=== PATIENT | female | born 1985 | race Asian ===

== ENCOUNTER 2023-12-13 04:14 | Emergency (ER) | payer OTHER, MEDICAID, SELFPAY ==
[2023-12-13] VITALS (10 sets, daily range): BP systolic 97–124; BP diastolic 52–78; PULSE 64–80; RESP 14; TEMP 36.3; O2SAT 99–100; BMI 19.5
--- NOTE | 2023-12-13 04:31 | ED_ITS ---
HPI - Nausea/Vomiting/Diarrhea General Chief complaint: Fall Stated complaint: fall 8 weeks Time Seen by Provider: 12/13/23 04:18 History of Present Illness HPI Narrative: 38-year-old female at approximately 8wks gestation per LMP with no reported past medical history presents for nausea, vomiting, syncopal episode while using the restroom earlier this morning. History is obtained via at [employer] mentally impaired teacher service as patient only speaks Mandarin. Via gas meter installer helper service patient states that she has been vomiting for the last 2 weeks and feels generally weak. While using the restroom this morning she felt very faint and passed out. She denies abdominal pain, loss of fluids, vaginal bleeding. Related Data Home Medications Medication Instructions Recorded Confirmed Complete 12/13/23 Previous Rx's Medication Instructions Recorded doxylamine 10 mg-pyridoxine (vit 1 tab PO BID #30 tabs 12/13/23 B6) 10 mg tablet,delayed release (Diclegis) ondansetron 4 mg disintegrating 4 mg PO Q8H PRN nausea and 12/13/23 tablet vomiting #30 tabs Allergies Allergy/AdvReac Type Severity Reaction Status Date / Time No Known Drug Allergies Allergy Verified 12/13/23 04:54 Review of Systems Review of Systems Narrative: see HPI Patient History Social History Smoking Status: Never smoker Exam Initial Vital Signs Initial Vital Signs: Vital Signs Pulse Rate 78 12/13/23 04:25 Pulse Oximetry 100 12/13/23 04:25 Const: Awake, alert, fatigued, nontoxic appearing Cardiac: regular rate, regular rhythm RESP: unlabored, clear bilaterally, no wheezing GI: Soft, nontender, nondistended Skin: Warm, Dry, intact, no rashes Neuro: AO x3, CN II-XII grossly intact, moves all extremities Course Orders Ordered: ED Orders 12/13/23 04:41 EKG-12 Lead Stat 12/13/23 04:45 CBC Auto Diff [Complete Blood Count AUTO DIFF] Stat CMP [Comprehensive Metabolic Panel] Stat 12/13/23 06:16 UA Complete [Urinalysis and Microscopic] Stat Discontinued Medications Sodium Chloride (Normal Saline 0.9%) 1,000 mls @ 1,000 mls/hr IV BOLUS ONE Stop: 12/13/23 05:29 Last Infusion: 12/13/23 05:41 Dose: Infused Documented By: Admin: 12/13/23 04:45 Dose: 1,000 mls/hr Documented By: Sodium Chloride (Normal Saline 0.9%) 1,000 mls @ 1,000 mls/hr IV BOLUS ONE Stop: 12/13/23 06:33 Last Infusion: 12/13/23 06:18 Dose: Infused Documented By: Admin: 12/13/23 05:41 Dose: 1,000 mls/hr Documented By: Ondansetron HCl (Ondansetron 4 Mg/2 Ml Inj) 4 mg IV NOW ONE Stop: 12/13/23 04:31 Last Admin: 12/13/23 04:50 Dose: 4 mg Documented By: Vital Signs Vital signs: Vital Signs - 8 hr 12/13/23 04:25 12/13/23 04:30 12/13/23 04:30 Temperature Pulse Rate 78 67 Respiratory Rate Blood Pressure 124/78 Pulse Oximetry 100 100 Oxygen Delivery Method 12/13/23 04:54 12/13/23 05:00 12/13/23 05:00 Temperature 97.4 F L Pulse Rate 80 74 Respiratory Rate 14 Blood Pressure 114/74 108/55 L Pulse Oximetry 100 100 Oxygen Delivery Method Room Air 12/13/23 05:30 12/13/23 05:30 12/13/23 06:00 Temperature Pulse Rate 64 Respiratory Rate Blood Pressure 97/68 104/59 L Pulse Oximetry 100 Oxygen Delivery Method 12/13/23 06:00 Temperature Pulse Rate 73 Respiratory Rate Blood Pressure Pulse Oximetry 100 Oxygen Delivery Method MDM - Nausea/Vomiting/Diarrhea Differential Diagnosis Differential diagnosis: Likely traveler's diarrhea, food poisoning and gastroenteritis Lab Data 12/13/23 04:45 12/13/23 04:45 Labs: Lab Results 12/13/23 12/13/23 Range/Units 04:45 06:16 WBC 10.6 (4.5-11.0) X10^3/uL RBC 4.11 (4.0-5.2) X10^6/uL Hgb 12.3 (12.0-16.0) g/dL Hct 36.6 (36-46) % MCV 89.1 (80-100) fL MCH 30.0 (26-34) PG MCHC 33.7 (30-36) % RDW 13.5 (11.6-14.8) % Plt Count 309 (150-400) X10^3/uL Neut % (Auto) 72.4 (50-75) % Lymph % (Auto) 19.5 L (25-40) % [place] % (Auto) 6.6 (3-14) % Eos % (Auto) 0.7 L (2-4) % Baso % (Auto) 0.8 (0-2) % Neut # (Auto) 7700 H (8697-9563) /uL Lymph # (Auto) 2100 (1380-3707) /uL [place] # (Auto) 700 (0-900) /uL Eos # (Auto) 100 (0-450) /uL Baso # (Auto) 100 (0-100) /uL Sodium 137 (137-145) mmol/L Potassium 3.6 (3.4-5.1) mmol/L Chloride 109 H (98-107) mmol/L Carbon Dioxide 20 L (22-32) mmol/L BUN 9 (7-17) mg/dL Creatinine 0.42 L (0.52-1.04) mg/dL Estimated GFR > 60 (>60) mL/min BUN/Creatinine Ratio 21.4 (6-22) Glucose 90 (70-100) mg/dL Calcium 9.0 (8.4-10.2) mg/dL Total Bilirubin 0.6 (0.2-1.3) mg/dL AST 27 (14-36) IU/L ALT 17 (<35) IU/L Alkaline Phosphatase 30 L (38-126) U/L Total Protein 7.4 (6.3-8.2) g/dL Albumin 4.4 (3.5-5.0) g/dL Globulin 3.0 (1.7-4.1) g/dL Albumin/Globulin Ratio 1.5 (1.0-2.8) Urine Color Yellow Urine Appearance Clear Urine pH 6.5 (4.5-8.0) Ur Specific [place] <=1.005 (1.000-1.035) Urine Protein Negative (Negative) Urine Glucose (UA) Negative (Negative) g/dL Urine Ketones 1+ H (NEGATIVE) Urine Occult Blood Negative (Negative) Urine Nitrate Negative (Negative) Urine Bilirubin Negative (NEGATIVE) Urine Urobilinogen 0.2 (0.2) E.U./dL Ur Leukocyte Esterase Negative (NEGATIVE) Urine RBC None seen (0-5/HPF) Urine WBC None seen (0-5/HPF) Ur Squamous Epith Cells 1-5 /hpf (0-5/HPF) Urine Bacteria Occasional (0-1) (None) Ur Culture Indicated? Cult not indicated Vol Urine Centrifuged 10ml (spun) ECG Data Interpretation: Normal sinus rhythm, 70 beats per minute. Normal AK, normal QTC, no ST changes MDM Narrative Medical decision making narrative: Nausea and vomiting in early . No abdominal pain or bleeding. Syncopal episode likely due to volume depletion and vomiting. EKG normal sinus rhythm without concerning findings. Laboratory work, IV fluids, antiemetics ordered. EKG sinus rhythm without concerning findings. Laboratory work is reviewed, no significant electrolyte abnormality or derangement. Urinalysis with 1+ ketones but no infection. Patient reported feeling significantly better after IV fluids and antiemetics, subsequently able to tolerate p.o.. Via gas meter installer helper service patient was informed of lab results. Nausea medication sent to patient's pharmacy of choice. She was advised to follow up with OBGYN and when she returns to her home [facility] Discharge Plan Departure Patient Disposition: Home Clinical Impression: Syncope, First trimester , Nausea and vomiting during Instructions: DI for Hyperemesis Gravidarum Activity Restrictions/Additional Instructions: Follow up with your OBGYN when you get back to your hometow Prescriptions: New ondansetron 4 mg tablet,disintegrating 4 mg PO Q8H PRN (Reason: nausea and vomiting) Qty: 30 0RF doxylamine-pyridoxine (vit B6) [Diclegis] 10-10 mg tablet,delayed release (DR/EC) 1 tab PO BID Qty: 30 0RF No Action Complete Stand Alone Forms: Patient Portal/API
[2023-12-13] MEDS: SODIUM CHLORIDE 0.9% 1,000 ML 1000 ML IV ×2 (04:45→05:41)
[2023-12-13] MEDS: ONDANSETRON 4 MG/2 ML INJ IV (04:50)
[2023-12-13 04:59] LABS: Add Manual Diff / Slide Review NO; Basophils Absolute Auto 100 /uL (0-100); Basophils Percent Auto 0.8 % (0-2); Eosinophils Absolute Auto 100 /uL (0-450); Eosinophils Percent Auto 0.7 % (2-4); Hematocrit 36.6 % (36-46); Hemoglobin 12.3 g/dL (12.0-16.0); Lymphocytes Absolute Auto 2100 /uL (1100-4500); Lymphocytes Percent Auto 19.5 % (25-40); Mean Corpuscular HGB Conc 33.7 % (30-36); Mean Corpuscular Volume 89.1 fL (80-100); Monocytes Absolute Auto 700 /uL (0-900); Monocytes Percent Auto 6.6 % (3-14); Neutrophils Absolute Auto 7700 /uL (1500-7000); Neutrophils Percent Auto 72.4 % (50-75); Platelet Count 309 X10^3/uL (150-400); Red Blood Cell Count 4.11 X10^6/uL (4.0-5.2); Red Cell Distribution Width 13.5 % (11.6-14.8); White Blood Cell Count 10.6 X10^3/uL (4.5-11.0)
[2023-12-13 05:11] LABS: Alanine Aminotransferase 17 IU/L (<35); Albumin 4.4 g/dL (3.5-5.0); Albumin Globulin Ratio 1.5 (1.0-2.8); BUN Creatinine Ratio 21.4 (6-22); Bilirubin Total 0.6 mg/dL (0.2-1.3); Blood Urea Nitrogen 9 mg/dL (7-17); Carbon Dioxide 20 mmol/L (22-32); Chloride 109 mmol/L (98-107); Estimated Glomerular Filt Rate > 60 mL/min (>60); Glucose 90 mg/dL (70-100); Sodium 137 mmol/L (137-145); Total Protein 7.4 g/dL (6.3-8.2)
[2023-12-13 05:12] LABS: HEMOLYSIS 66 (0-50); Potassium 3.6 mmol/L (3.4-5.1)
[2023-12-13 05:13] LABS: Alkaline Phosphatase 30 U/L (38-126); Aspartate Aminotransferase 27 IU/L (14-36)
[2023-12-13 06:25] LABS: Appearance Urine UA CLEAR; Bilirubin Urine UA NEGATIVE (NEGATIVE); Color Urine UA YELLOW; Glucose Urine UA NEGATIVE (Negative); Ketones Urine UA 1+ (NEGATIVE); Leukocyte Esterase Urine UA NEGATIVE (NEGATIVE); Nitrite Urine UA NEGATIVE (Negative); Occult Blood Urine UA NEGATIVE (Negative); Protein Urine UA NEGATIVE (Negative); Specific Gravity Urine UA <=1.005 (1.000-1.035); Urobilinogen Urine UA 0.2 E.U./dL (0.2)
[2023-12-13 06:32] LABS: Bacteria Urine Occasional (0-1); RBC Urine None Seen (0-5/HPF); Urine Volume 10mL (spun); WBC Urine None Seen (0-5/HPF); pH Urine UA 6.5 (4.5-8.0)
[2023-12-13 06:33] LABS: Culture Indicated Urine Cult Not Indicated; Squamous Epithelial Cell Urine 1-5 /HPF (0-5/HPF)
--- NOTE | 2023-12-23 12:08 | ED.FALL ---
HPI - Fall General Chief Complaint: Fall Stated Complaint: fall 8 weeks Time Seen by Provider: 12/13/23 04:18 Source: patient Mode of arrival: Wheelchair History of Present Illness HPI Narrative: This chart was opened in error. This is a duplicate please refer to the encounter for nausea vomiting dated December 23, 2023. Related Data Home Medications Medication Instructions Recorded Confirmed Complete 12/13/23 Previous Rx's Medication Instructions Recorded doxylamine 10 mg-pyridoxine (vit 1 tab PO BID #30 tabs 12/13/23 B6) 10 mg tablet,delayed release (Diclegis) ondansetron 4 mg disintegrating 4 mg PO Q8H PRN nausea and 12/13/23 tablet vomiting #30 tabs Allergies Allergy/AdvReac Type Severity Reaction Status Date / Time No Known Drug Allergies Allergy Verified 12/13/23 04:54 Patient History Social History Smoking Status: Never smoker Smoking Status: Never smoker Substance Use Type: does not use Exam Initial Vital Signs Initial Vital Signs: Vital Signs Pulse Rate 78 12/13/23 04:25 Pulse Oximetry 100 12/13/23 04:25 Course Orders Ordered: Discontinued Medications Sodium Chloride (Normal Saline 0.9%) 1,000 mls @ 1,000 mls/hr IV BOLUS ONE Stop: 12/13/23 05:29 Last Infusion: 12/13/23 05:41 Dose: Infused Documented By: Admin: 12/13/23 04:45 Dose: 1,000 mls/hr Documented By: Sodium Chloride (Normal Saline 0.9%) 1,000 mls @ 1,000 mls/hr IV BOLUS ONE Stop: 12/13/23 06:33 Last Infusion: 12/13/23 06:18 Dose: Infused Documented By: Admin: 12/13/23 05:41 Dose: 1,000 mls/hr Documented By: Ondansetron HCl (Ondansetron 4 Mg/2 Ml Inj) 4 mg IV NOW ONE Stop: 12/13/23 04:31 Last Admin: 12/13/23 04:50 Dose: 4 mg Documented By: MDM - Fall Lab Data 12/13/23 04:45 12/13/23 04:45 Labs: Lab Results 12/13/23 12/13/23 Range/Units 04:45 06:16 WBC 10.6 (4.5-11.0) X10^3/uL RBC 4.11 (4.0-5.2) X10^6/uL Hgb 12.3 (12.0-16.0) g/dL Hct 36.6 (36-46) % MCV 89.1 (80-100) fL MCH 30.0 (26-34) PG MCHC 33.7 (30-36) % RDW 13.5 (11.6-14.8) % Plt Count 309 (150-400) X10^3/uL Neut % (Auto) 72.4 (50-75) % Lymph % (Auto) 19.5 L (25-40) % [place] % (Auto) 6.6 (3-14) % Eos % (Auto) 0.7 L (2-4) % Baso % (Auto) 0.8 (0-2) % Neut # (Auto) 7700 H (5238-0136) /uL Lymph # (Auto) 2100 (5394-2210) /uL [place] # (Auto) 700 (0-900) /uL Eos # (Auto) 100 (0-450) /uL Baso # (Auto) 100 (0-100) /uL Sodium 137 (137-145) mmol/L Potassium 3.6 (3.4-5.1) mmol/L Chloride 109 H (98-107) mmol/L Carbon Dioxide 20 L (22-32) mmol/L BUN 9 (7-17) mg/dL Creatinine 0.42 L (0.52-1.04) mg/dL Estimated GFR > 60 (>60) mL/min BUN/Creatinine Ratio 21.4 (6-22) Glucose 90 (70-100) mg/dL Calcium 9.0 (8.4-10.2) mg/dL Total Bilirubin 0.6 (0.2-1.3) mg/dL AST 27 (14-36) IU/L ALT 17 (<35) IU/L Alkaline Phosphatase 30 L (38-126) U/L Total Protein 7.4 (6.3-8.2) g/dL Albumin 4.4 (3.5-5.0) g/dL Globulin 3.0 (1.7-4.1) g/dL Albumin/Globulin Ratio 1.5 (1.0-2.8) Urine Color Yellow Urine Appearance Clear Urine pH 6.5 (4.5-8.0) Ur Specific [place] <=1.005 (1.000-1.035) Urine Protein Negative (Negative) Urine Glucose (UA) Negative (Negative) g/dL Urine Ketones 1+ H (NEGATIVE) Urine Occult Blood Negative (Negative) Urine Nitrate Negative (Negative) Urine Bilirubin Negative (NEGATIVE) Urine Urobilinogen 0.2 (0.2) E.U./dL Ur Leukocyte Esterase Negative (NEGATIVE) Urine RBC None seen (0-5/HPF) Urine WBC None seen (0-5/HPF) Ur Squamous Epith Cells 1-5 /hpf (0-5/HPF) Urine Bacteria Occasional (0-1) (None) Ur Culture Indicated? Cult not indicated Vol Urine Centrifuged 10ml (spun) Discharge Plan Departure Patient Disposition: Home Clinical Impression: Syncope, First trimester , Nausea and vomiting during Instructions: DI for Hyperemesis Gravidarum Activity Restrictions/Additional Instructions: Follow up with your OBGYN when you get back to your hometown Prescriptions: New ondansetron 4 mg tablet,disintegrating 4 mg PO Q8H PRN (Reason: nausea and vomiting) Qty: 30 0RF doxylamine-pyridoxine (vit B6) [Diclegis] 10-10 mg tablet,delayed release (DR/EC) 1 tab PO BID Qty: 30 0RF No Action Complete Stand Alone Forms: Patient Portal/API
== END 2023-12-13 07:22 | disposition home or self-care (01) ==
PROVIDERS: Emergency Provider Emergency Medicine
DX: O26.891 Other specified pregnancy related conditions, first trimester (principal); R55 Syncope and collapse; R11.2 Nausea with vomiting, unspecified; Z3A.08 8 weeks gestation of pregnancy
CPT/HCPCS: 36415; 80053; 81001; 85025; 93005; 96374; 99284; J2405

== ENCOUNTER 2023-12-23 10:54 | Emergency (ER) | payer OTHER, MEDICAID, SELFPAY ==
[2023-12-23 11:28] VITALS: BP 111/73; PULSE 110; RESP 18; TEMP 37.1; O2SAT 97
--- NOTE | 2023-12-23 12:08 | ED.NAVMDI ---
HPI - Nausea/Vomiting/Diarrhea <Daiana Alvarado PA-C - Last Filed: 12/23/23 17:36> General Chief complaint: Nausea/Vomiting/Diarrhea Stated complaint: 9 wks , NVD Time Seen by Provider: 12/23/23 11:11 Source: patient, family and improvement nurse Mode of arrival: Ambulatory History of Present Illness HPI Narrative: 38-year-old female returns to the emergency department for persistent nausea, vomiting and 1 loose stool yesterday. She was seen on December 13, 2023 had lab work performed which was all within normal limits and given outpatient instructions to use ondansetron as well as doxylamine pyridoxine for hyperemesis . She did use these medications for the last 5 days and they did help. She then stopped them had recurrence of symptoms and restarted them this morning. She is followed by her doctor [place], she is here visiting friends for 1 week. She has an ultrasound scheduled on December 27, 2023 at [facility] in [place]. Previous ultrasound at her family doctor on December 16, per the patient showed fibroids. She is denying any abdominal pain, any fever, any urinary symptoms, any flank pain and no vaginal symptoms. She is with a 10-year-old child. First day of LMP October 23, 2023. Using a gestational calculator her current gestational age is 8 weeks 5 days with an estimated date of delivery of July 29, 2024. Use of the improvement nurse tablet as well as mobile phone Google translation Cantonese throughout the entire history and examination. All other systems are reviewed and are negative. Related Data Home Medications Medication Instructions Recorded Confirmed Complete 12/13/23 Previous Rx's Medication Instructions Recorded doxylamine 10 mg-pyridoxine (vit 1 tab PO BID #30 tabs 12/13/23 B6) 10 mg tablet,delayed release (Diclegis) ondansetron 4 mg disintegrating 4 mg PO Q8H PRN nausea and 12/13/23 tablet vomiting #30 tabs Allergies Allergy/AdvReac Type Severity Reaction Status Date / Time No Known Drug Allergies Allergy Verified 12/13/23 04:54 Patient History <Daiana Alvarado PA-C - Last Filed: 12/23/23 17:36> Social History Smoking Status: Never smoker Smoking Status: Never smoker Substance Use Type: does not use Exam <Daiana Alvarado PA-C - Last Filed: 12/23/23 17:36> Initial Vital Signs Initial Vital Signs: Vital Signs Temperature 98.7 F 12/23/23 11:28 Pulse Rate 110 H 12/23/23 11:28 Respiratory Rate 18 12/23/23 11:28 Blood Pressure 111/73 12/23/23 11:28 Pulse Oximetry 97 12/23/23 11:28 Oxygen Delivery Method Room Air 12/23/23 11:28 Vital signs reviewed and are normal except for heart rate of 110, re-evaluated after 1 L of intravenous normal saline and it was 72 per minute. Const Other: Smiling, seated, no distress. Work of breathing is normal. Vital signs reviewed and are normal initial heart rate was 110 per minute however. HENMT Face and sinus: normal facial exam Mouth: oral mucosae normal, lip normal and tongue normal Teeth and gingiva: dentition normal and gingiva normal Throat: posterior oropharynx normal Eyes Conjunctivae: conjunctivae normal Sclera: sclerae normal Neck Lymphatic: No lymphadenopathy Resp Other: Clear to auscultation throughout no wheezes rales or rhonchi. Cardio Other: Regular rate and rhythm, she is re-evaluated after 1 L of normal saline intravenously in her heart rate is 72 per minute. Skin Other: Normal color, turgor, temperature. <Sunny Veras DO - Last Filed: 12/23/23 17:40> Initial Vital Signs Initial Vital Signs: Vital Signs Temperature 98.7 F 12/23/23 11:28 Pulse Rate 110 H 12/23/23 11:28 Respiratory Rate 18 12/23/23 11:28 Blood Pressure 111/73 12/23/23 11:28 Pulse Oximetry 97 12/23/23 11:28 Oxygen Delivery Method Room Air 12/23/23 11:28 Course <Daiana Alvarado PA-C - Last Filed: 12/23/23 17:36> Course Course Narrative: Intravenous hydration of 1 L normal saline, Zofran 4 mg IV, overall she feels much better, CBC and CMP are within normal limits however she did show slightly elevated neutrophils and urinalysis was performed. She has had no recurrence of nausea and no vomiting while in house. She remains pain-free and is denying any new symptoms. Orders Ordered: ED Orders 12/23/23 12:08 Complete Blood Count AUTO DIFF Stat Comprehensive Metabolic Panel Stat HCG Quantitative /Beta subunit Stat 12/23/23 13:32 Urinalysis and Microscopic Stat Discontinued Medications Sodium Chloride (Normal Saline 0.9%) 1,000 mls @ 1,000 mls/hr IV BOLUS ONE Stop: 12/23/23 12:11 Last Infusion: 12/23/23 13:43 Dose: Infused Documented By: Admin: 12/23/23 12:39 Dose: 1,000 mls/hr Documented By: JAMISON Sodium Chloride (Normal Saline 0.9%) 1,000 mls @ 1,000 mls/hr IV BOLUS PRN PRN Reason: Fluid replacement Last Infusion: 12/23/23 16:22 Dose: Infused Documented By: Admin: 12/23/23 15:28 Dose: 1,000 mls/hr Documented By: YOHAN Ondansetron HCl (Ondansetron 4 Mg/2 Ml Inj) 4 mg IV NOW ONE Stop: 12/23/23 11:13 Last Admin: 12/23/23 12:34 Dose: 4 mg Documented By: JAMISON Reevaluation(s) Reevaluation #1: Improved after 1 L of normal saline intravenous hydration. Reevaluation #2: 3:00 p.m. she has given a p.o. challenge with a popsicle, well-tolerated. She has had again no recurrence of nausea or vomiting while in the ED. Vital Signs Vital signs: Vital Signs - 8 hr 12/23/23 11:28 12/23/23 13:54 12/23/23 14:59 Temperature 98.7 F Pulse Rate 110 H 77 86 Respiratory Rate 18 18 16 Blood Pressure 111/73 102/59 L 112/68 Pulse Oximetry 97 98 98 Oxygen Delivery Method Room Air Room Air Room Air 12/23/23 17:14 Temperature 97 F L Pulse Rate 72 Respiratory Rate 20 Blood Pressure 97/59 L Pulse Oximetry 98 Oxygen Delivery Method Room Air <Sunny Veras DO - Last Filed: 12/23/23 17:40> Orders Ordered: ED Orders 12/23/23 12:08 Complete Blood Count AUTO DIFF Stat Comprehensive Metabolic Panel Stat HCG Quantitative /Beta subunit Stat 12/23/23 13:32 Urinalysis and Microscopic Stat Discontinued Medications Sodium Chloride (Normal Saline 0.9%) 1,000 mls @ 1,000 mls/hr IV BOLUS ONE Stop: 12/23/23 12:11 Last Infusion: 12/23/23 13:43 Dose: Infused Documented By: Admin: 12/23/23 12:39 Dose: 1,000 mls/hr Documented By: JAMISON Sodium Chloride (Normal Saline 0.9%) 1,000 mls @ 1,000 mls/hr IV BOLUS PRN PRN Reason: Fluid replacement Last Infusion: 12/23/23 16:22 Dose: Infused Documented By: Admin: 12/23/23 15:28 Dose: 1,000 mls/hr Documented By: YOHAN Ondansetron HCl (Ondansetron 4 Mg/2 Ml Inj) 4 mg IV NOW ONE Stop: 12/23/23 11:13 Last Admin: 12/23/23 12:34 Dose: 4 mg Documented By: JAMISON Vital Signs Vital signs: Vital Signs - 8 hr 12/23/23 11:28 12/23/23 13:54 12/23/23 14:59 Temperature 98.7 F Pulse Rate 110 H 77 86 Respiratory Rate 18 18 16 Blood Pressure 111/73 102/59 L 112/68 Pulse Oximetry 97 98 98 Oxygen Delivery Method Room Air Room Air Room Air 12/23/23 17:14 Temperature 97 F L Pulse Rate 72 Respiratory Rate 20 Blood Pressure 97/59 L Pulse Oximetry 98 Oxygen Delivery Method Room Air MDM - Nausea/Vomiting/Diarrhea <Daiana Alvarado PA-C - Last Filed: 12/23/23 17:36> Lab Data Lab results narrative: Quantitative hCG 085567,is well within the range of 8-12 weeks gestational age. Urinalysis was normal no indication for culture. 12/23/23 12:08 12/23/23 12:08 Labs: Lab Results 12/23/23 12/23/23 Range/Units 12:08 13:32 WBC 8.6 (4.5-11.0) X10^3/uL RBC 4.27 (4.0-5.2) X10^6/uL Hgb 12.9 (12.0-16.0) g/dL Hct 38.0 (36-46) % MCV 89.1 (80-100) fL MCH 30.2 (26-34) PG MCHC 33.9 (30-36) % RDW 13.8 (11.6-14.8) % Plt Count 348 (150-400) X10^3/uL Neut % (Auto) 83.3 H (50-75) % Lymph % (Auto) 11.7 L (25-40) % Woodson % (Auto) 4.5 (3-14) % Eos % (Auto) 0.1 L (2-4) % Baso % (Auto) 0.4 (0-2) % Neut # (Auto) 7100 H (2412-1326) /uL Lymph # (Auto) 1000 L (9820-1254) /uL Woodson # (Auto) 400 (0-900) /uL Eos # (Auto) 0 (0-450) /uL Baso # (Auto) 0 (0-100) /uL Sodium 137 (137-145) mmol/L Potassium 3.9 (3.4-5.1) mmol/L Chloride 107 (98-107) mmol/L Carbon Dioxide 21 L (22-32) mmol/L BUN 6 L (7-17) mg/dL Creatinine 0.41 L (0.52-1.04) mg/dL Estimated GFR > 60 (>60) mL/min BUN/Creatinine Ratio 14.6 (6-22) Glucose 144 H (70-100) mg/dL Calcium 9.5 (8.4-10.2) mg/dL Total Bilirubin 0.2 (0.2-1.3) mg/dL AST 22 (14-36) IU/L ALT 16 (<35) IU/L Alkaline Phosphatase 36 L (38-126) U/L Total Protein 7.7 (6.3-8.2) g/dL Albumin 4.5 (3.5-5.0) g/dL Globulin 3.2 (1.7-4.1) g/dL Albumin/Globulin Ratio 1.4 (1.0-2.8) Lipase Cancelled HCG, Quant 297759 mIU/mL Urine Color Yellow Urine Appearance Clear Urine pH 7.0 (4.5-8.0) Ur Specific Alexander 1.015 (1.000-1.035) Urine Protein Negative (Negative) Urine Glucose (UA) Negative (Negative) g/dL Urine Ketones Negative (NEGATIVE) Urine Occult Blood Negative (Negative) Urine Nitrate Negative (Negative) Urine Bilirubin Negative (NEGATIVE) Urine Urobilinogen 0.2 (0.2) E.U./dL Ur Leukocyte Esterase Negative (NEGATIVE) Urine RBC 0-1/hpf (0-5/HPF) Urine WBC 0-1/hpf (0-5/HPF) Ur Squamous Epith Cells 5-10 /hpf H (0-5/HPF) Urine Bacteria Occasional (0-1) (None) Urine Mucus 1+ H (Negative) Ur Culture Indicated? Cult not indicated Vol Urine Centrifuged 10ml (spun) MDM Narrative Medical decision making narrative: She has an ultrasound scheduled on December 26 at [facility] in [place]. I have asked her to contact her regular doctor Sunday morning to advise of the recurrent nausea and vomiting during . She is currently gestational age based on her dates of 8 weeks and 5 days with an estimated delivery date of July 29, 2024. Overall she improved with IV hydration and IV Zofran. She was able to tolerate an oral popsicles. She is ready to go home. I have asked her to contact her doctor Sunday morning to follow-up, she has an ultrasound also scheduled on December 26 at [facility], please keep this appointment. Please return to the emergency department if your symptoms recur or you have any new worrisome symptoms. She still has adequate supply of her oral disintegrating Zofran as well as doxylamine pyridoxine that I have asked her to restart as previously prescribed. We discussed pushing fluids using sips of clears, popsicles, soup such as broth, avoiding dairy or any other foods that might make her nauseated. Red flag warning signs are reviewed in detail. Addendum: At 3:18 p.m. she had an episode of nausea and vomiting. 2 L of saline is hung. She is re-evaluated and now she feels ready to go home. She has had no recurrence of any nausea or vomiting. Will signs remained normal. No new complaints. <Sunny Veras, DO - Last Filed: 12/23/23 17:40> Lab Data Labs: Lab Results 12/23/23 12/23/23 Range/Units 12:08 13:32 WBC 8.6 (4.5-11.0) X10^3/uL RBC 4.27 (4.0-5.2) X10^6/uL Hgb 12.9 (12.0-16.0) g/dL Hct 38.0 (36-46) % MCV 89.1 (80-100) fL MCH 30.2 (26-34) PG MCHC 33.9 (30-36) % RDW 13.8 (11.6-14.8) % Plt Count 348 (150-400) X10^3/uL Neut % (Auto) 83.3 H (50-75) % Lymph % (Auto) 11.7 L (25-40) % Woodson % (Auto) 4.5 (3-14) % Eos % (Auto) 0.1 L (2-4) % Baso % (Auto) 0.4 (0-2) % Neut # (Auto) 7100 H (1681-3039) /uL Lymph # (Auto) 1000 L (1955-8469) /uL Woodson # (Auto) 400 (0-900) /uL Eos # (Auto) 0 (0-450) /uL Baso # (Auto) 0 (0-100) /uL Sodium 137 (137-145) mmol/L Potassium 3.9 (3.4-5.1) mmol/L Chloride 107 (98-107) mmol/L Carbon Dioxide 21 L (22-32) mmol/L BUN 6 L (7-17) mg/dL Creatinine 0.41 L (0.52-1.04) mg/dL Estimated GFR > 60 (>60) mL/min BUN/Creatinine Ratio 14.6 (6-22) Glucose 144 H (70-100) mg/dL Calcium 9.5 (8.4-10.2) mg/dL Total Bilirubin 0.2 (0.2-1.3) mg/dL AST 22 (14-36) IU/L ALT 16 (<35) IU/L Alkaline Phosphatase 36 L (38-126) U/L Total Protein 7.7 (6.3-8.2) g/dL Albumin 4.5 (3.5-5.0) g/dL Globulin 3.2 (1.7-4.1) g/dL Albumin/Globulin Ratio 1.4 (1.0-2.8) Lipase Cancelled HCG, Quant 473407 mIU/mL Urine Color Yellow Urine Appearance Clear Urine pH 7.0 (4.5-8.0) Ur Specific Alexander 1.015 (1.000-1.035) Urine Protein Negative (Negative) Urine Glucose (UA) Negative (Negative) g/dL Urine Ketones Negative (NEGATIVE) Urine Occult Blood Negative (Negative) Urine Nitrate Negative (Negative) Urine Bilirubin Negative (NEGATIVE) Urine Urobilinogen 0.2 (0.2) E.U./dL Ur Leukocyte Esterase Negative (NEGATIVE) Urine RBC 0-1/hpf (0-5/HPF) Urine WBC 0-1/hpf (0-5/HPF) Ur Squamous Epith Cells 5-10 /hpf H (0-5/HPF) Urine Bacteria Occasional (0-1) (None) Urine Mucus 1+ H (Negative) Ur Culture Indicated? Cult not indicated Vol Urine Centrifuged 10ml (spun) Discharge Plan Departure Patient Disposition: Home Clinical Impression: Nausea and vomiting during , First trimester Instructions: Nausea of (Alternative Therapy) Activity Restrictions/Additional Instructions: Please continue your prescription medications for nausea, try to hydrate using clear fluids, popsicles, soup such as broths, please call your doctor Sunday morning for follow-up and keep your ultrasound appointment on December 26. Return to the emergency department if you have any recurrent symptoms or any new worrisome symptoms. Prescriptions: No Action Complete ondansetron 4 mg tablet,disintegrating 4 mg PO Q8H PRN (Reason: nausea and vomiting) Qty: 30 0RF doxylamine-pyridoxine (vit B6) [Diclegis] 10-10 mg tablet,delayed release (DR/EC) 1 tab PO BID Qty: 30 0RF Stand Alone Forms: Patient Portal/API ED Sign-out <Sunny Veras, DO - Last Filed: 12/23/23 17:40> Cosign ED Attending Cosadrienneature Attestation: Dr Veras Co-Sign Statement: I was available for consultation during this patient's emergency department visit. This chart is signed by myself for administrative purposes only. I did not have direct contact with this patient during this visit. They were seen independently by the APC.
[2023-12-23 12:23] LABS: Add Manual Diff / Slide Review NO; Basophils Absolute Auto 0 /uL (0-100); Basophils Percent Auto 0.4 % (0-2); Eosinophils Absolute Auto 0 /uL (0-450); Eosinophils Percent Auto 0.1 % (2-4); Hemoglobin 12.9 g/dL (12.0-16.0); Lymphocytes Absolute Auto 1000 /uL (1100-4500); Lymphocytes Percent Auto 11.7 % (25-40); Mean Corpuscular HGB Conc 33.9 % (30-36); Mean Corpuscular Hemoglobin 30.2 PG (26-34); Mean Corpuscular Volume 89.1 fL (80-100); Monocytes Absolute Auto 400 /uL (0-900); Monocytes Percent Auto 4.5 % (3-14); Neutrophils Absolute Auto 7100 /uL (1500-7000); Neutrophils Percent Auto 83.3 % (50-75); Platelet Count 348 X10^3/uL (150-400); Red Blood Cell Count 4.27 X10^6/uL (4.0-5.2); Red Cell Distribution Width 13.8 % (11.6-14.8); White Blood Cell Count 8.6 X10^3/uL (4.5-11.0)
[2023-12-23] MEDS: ONDANSETRON 4 MG/2 ML INJ IV (12:34)
[2023-12-23 12:36] LABS: Alanine Aminotransferase 16 IU/L (<35); Albumin 4.5 g/dL (3.5-5.0); Albumin Globulin Ratio 1.4 (1.0-2.8); Alkaline Phosphatase 36 U/L (38-126); Aspartate Aminotransferase 22 IU/L (14-36); BUN Creatinine Ratio 14.6 (6-22); Bilirubin Total 0.2 mg/dL (0.2-1.3); Blood Urea Nitrogen 6 mg/dL (7-17); Calcium 9.5 mg/dL (8.4-10.2); Carbon Dioxide 21 mmol/L (22-32); Chloride 107 mmol/L (98-107); Estimated Glomerular Filt Rate > 60 mL/min (>60); Globulin 3.2 g/dL (1.7-4.1); Glucose 144 mg/dL (70-100); HEMOLYSIS < 15 (0-50); Potassium 3.9 mmol/L (3.4-5.1); Sodium 137 mmol/L (137-145); Total Protein 7.7 g/dL (6.3-8.2)
[2023-12-23] MEDS: SODIUM CHLORIDE 0.9% 1,000 ML 1000 ML IV ×2 (12:39→15:28)
--- NOTE | 2023-12-23 12:55 | PC.NURSE ---
Pt 9 weeks . C/o n/v.
[2023-12-23 13:17] LABS: HCG Quantitative /Beta subunit 160830 mIU/mL
[2023-12-23 13:54] VITALS: BP 102/59; PULSE 77; RESP 18; O2SAT 98
[2023-12-23 14:37] LABS: Appearance Urine UA CLEAR; Bilirubin Urine UA NEGATIVE (NEGATIVE); Color Urine UA YELLOW; Glucose Urine UA NEGATIVE (Negative); Ketones Urine UA NEGATIVE (NEGATIVE); Leukocyte Esterase Urine UA NEGATIVE (NEGATIVE); Nitrite Urine UA NEGATIVE (Negative); Occult Blood Urine UA NEGATIVE (Negative); Protein Urine UA NEGATIVE (Negative); Specific Gravity Urine UA 1.015 (1.000-1.035); Urobilinogen Urine UA 0.2 E.U./dL (0.2)
[2023-12-23 14:44] LABS: Bacteria Urine Occasional (0-1); Culture Indicated Urine Cult Not Indicated; Mucus Urine 1+ (Negative); RBC Urine 0-1/HPF (0-5/HPF); Squamous Epithelial Cell Urine 5-10 /HPF (0-5/HPF); Urine Volume 10mL (spun); WBC Urine 0-1/HPF (0-5/HPF)
[2023-12-23 14:59] VITALS: BP 112/68; PULSE 86; RESP 16; O2SAT 98
[2023-12-23 17:14] VITALS: BP 97/59; PULSE 72; RESP 20; TEMP 36.1; O2SAT 98
== END 2023-12-23 17:16 | disposition home or self-care (01) ==
PROVIDERS: Emergency Medicine; Emergency Provider Physician Assistant Medical
DX: O26.891 Other specified pregnancy related conditions, first trimester (principal); R11.2 Nausea with vomiting, unspecified; Z3A.09 9 weeks gestation of pregnancy
CPT/HCPCS: 36415; 80053; 81001; 84702; 85025; 96374; 99284; J2405